=== PATIENT | female | born 1965 | race Caucasian/White ===

== ENCOUNTER 2018-02-03 06:09 | Day surgery (SDC) | payer OTHER ==
[~2018-02-03 06:09] MED LIST: SOD CHLORIDE 0.9% 1,000 ML IV
[2018-02-03] MEDS ORDERED: ACETAMINOPHEN 1000 MG/100 ML IVPB (07:00)
[2018-02-03] MEDS ORDERED: PROPOFOL 200 MG INJ (07:00)
[2018-02-03] MEDS ORDERED: MIDAZOLAM 1 MG/ML 2 ML INJ (07:30)
[2018-02-03] MEDS ORDERED: HYDROmorphONE 2 MG/ML SYG (07:30)
[2018-02-03] MEDS ORDERED: METOCLOPRAMIDE 10 MG INJ (07:30)
[2018-02-03] MEDS ORDERED: ONDANSETRON 4 MG INJ (07:30)
[2018-02-03] MEDS ORDERED: FENTAnyl 50 MCG/ML VIAL (07:30)
[2018-02-03] MEDS ORDERED: CEFAZOLIN 1 GM INJ (07:30)
[2018-02-03] MEDS ORDERED: LIDOCAINE 1%/EPI 30 ML INJ (07:44)
[2018-02-03] MEDS ORDERED: EPHEDrine SULFATE 50 MG/5 ML SYG (08:00)
[2018-02-03] MEDS ORDERED: morphine 2 MG INJ IV (08:00)
[2018-02-03] MEDS ORDERED: HYDROmorphONE (0.2 MG/ML) 10ML SYG IV ×2 (08:30)
[2018-02-03] MEDS ORDERED: DIPHENHYDRAMINE 50 MG INJ IV (08:30)
[2018-02-03] MEDS ORDERED: ONDANSETRON 4 MG INJ IV (08:30)
[2018-02-03] MEDS: BUPIVACAINE LIPOSOME/PF 266 MG/20 ML VIAL INFIL (08:30)
[2018-02-03] MEDS ORDERED: OXYCODONE/ACETAMINOPHEN (5/325) TAB PO ×2 (08:30)
[2018-02-03] MEDS: BUPIVACAINE 0.5%/EPI (SDV) 30 ML INJ INJ (08:51)
[2018-02-03] MEDS: EPINEPHrine 1 MG INJ (08:53)
[2018-02-03] MEDS: GENTAMICIN 80 MG INJ (08:54)
[2018-02-03] MEDS ORDERED: BACITRACIN/POLYMYXIN 28.35 GM OINT TOP (10:08)
[2018-02-03] MEDS: HYDROmorphONE (0.2 MG/ML) 10ML SYG IV (10:43)
[2018-02-03] MEDS: MEPERIDINE 25 MG INJ IV (10:44)
[2018-02-03] MEDS: ONDANSETRON 4 MG INJ IV (11:16)
== END 2018-02-03 12:18 | disposition home or self-care (01) ==
LOC: SDS 06:09
DX: Z42.1 Encounter for breast reconstruction following mastectomy (principal); Z85.3 Personal history of malignant neoplasm of breast; J45.909 Unspecified asthma, uncomplicated
CPT/HCPCS: 19350; 88307

== ENCOUNTER 2018-05-12 13:27 | Day surgery (SDC) | payer OTHER ==
[2018-05-12] MEDS ORDERED: PROPOFOL 20 ML (18:17)
[2018-05-12] MEDS ORDERED: FENTAnyl 50 MCG/ML VIAL (18:17)
[2018-05-12] MEDS ORDERED: MIDAZOLAM 1 MG/ML 2 ML INJ (18:17)
== END 2018-05-12 19:33 | disposition home or self-care (01) ==
LOC: GIL 13:27
DX: Z12.11 Encounter for screening for malignant neoplasm of colon (principal); K21.0 Gastro-esophageal reflux disease with esophagitis; K64.0 First degree hemorrhoids; K22.70 Barrett's esophagus without dysplasia; K29.50 Unspecified chronic gastritis without bleeding
CPT/HCPCS: 43239; 88305; 88312; 88313